=== PATIENT | female | born 1950 | race Caucasian/White ===

== ENCOUNTER → 2017-09-20 | Outpatient (CLI) | payer OTHER | LOC: FIMAGING 09:20 | PROVIDERS: ATTEND Family Medicine | DX: Z12.31 Encounter for screening mammogram for malignant neoplasm of breast (principal); Z80.3 Family history of malignant neoplasm of breast | CPT/HCPCS: G0202 ==

== ENCOUNTER → 2017-09-26 | Outpatient (CLI) | payer OTHER | LOC: FIMAGING 12:54 | PROVIDERS: ATTEND Family Medicine | DX: R92.8 Other abnormal and inconclusive findings on diagnostic imaging of breast (principal) ==

== ENCOUNTER → 2017-10-23 | Outpatient (CLI) | payer OTHER ==
[~2017-10-23] MED LIST: BUPIVACAINE 0.5% 10 ML SDV ONE; LIDOCAINE 1% 300 MG/30 ML SDV ONE; THROMBIN (BOVINE) 5,000 UNIT VIAL TP ONE
== END ==
LOC: FIMAGING 07:06
PROVIDERS: ATTEND Family Medicine
PROC: 0HBT3ZX Excision of Right Breast, Percutaneous Approach, Diagnostic (ICD-10-PCS; principal; 2017-10-23)
DX: C50.911 Malignant neoplasm of unspecified site of right female breast (principal)
CPT/HCPCS: 19083; 88305; 88341; 88342; 88360; G0206

== ENCOUNTER → 2017-11-07 | Outpatient (CLI) | payer OTHER | LOC: FIMAGING 11:05 | PROVIDERS: ATTEND Family Medicine | DX: Z13.820 Encounter for screening for osteoporosis (principal); M85.80 Other specified disorders of bone density and structure, unspecified site; Z78.0 Asymptomatic menopausal state; Z85.3 Personal history of malignant neoplasm of breast ==

== ENCOUNTER → 2017-11-21 | Outpatient (CLI) | payer OTHER, MEDICARE ==
[~2017-11-21] MED LIST changes: -BUPIVACAINE 0.5% 10 ML SDV ONE; +GADOBUTROL 10 ML VIAL IVP ONE; -LIDOCAINE 1% 300 MG/30 ML SDV ONE; -THROMBIN (BOVINE) 5,000 UNIT VIAL TP ONE
== END ==
LOC: FIMAGING 12:59
PROVIDERS: ATTEND Internal Medicine Hematology & Oncology
DX: D05.10 Intraductal carcinoma in situ of unspecified breast (principal); R92.8 Other abnormal and inconclusive findings on diagnostic imaging of breast
CPT/HCPCS: 0159T; A9585; C8908

== ENCOUNTER 2017-12-06 07:27 | Observation (INO) | payer OTHER, MEDICARE ==
[2017-12-06] MEDS ORDERED: LIDOCAINE 1% 300 MG/30 ML SDV ONE ×2 (07:46→13:36)
[2017-12-06] MEDS ORDERED: LR 1,000 ML IV ONE (10:42)
[2017-12-06] MEDS ORDERED: LIDOCAINE 1% 2 ML INJ ID PRN (10:42)
[2017-12-06] MEDS ORDERED: LIDOCAINE 1% 2 ML INJ ONE (10:44)
[2017-12-06] MEDS ORDERED: BUPIVACAINE 0.25% 30 ML SDV ONE (13:37)
[2017-12-06] MEDS ORDERED: MIDAZOLAM 2 MG/2 ML VIAL IVP ONE (13:48)
--- NOTE | 2017-12-06 13:49 | PDANEPAE ---
ANE History of Present Illness right breast partial mastectomy ANE Past Medical History - Cardiovascular History Hx Hypertension: No Hx Arrhythmias: No Hx Chest Pain: No Hx Coronary Artery / Peripheral Vascular Disease: No Hx CHF / Valvular Disease: No Hx Palpitations: No - Pulmonary History Hx COPD: No Hx Asthma/Reactive Airway Disease: No Hx Recent Upper Respiratory Infection: No Hx Oxygen in Use at Home: No Hx Sleep Apnea: No Sleep Apnea Screening Result - Last Documented: Negative - Neurologic History Hx Cerebrovascular Accident: No Hx Seizures: No Hx Dementia: No - Endocrine History Hx Diabetes: No Obesity: no - Renal History Hx Renal Disorders: No - Liver History Hx Hepatic Disorders: No - Neurological & Psychiatric Hx Hx Neurological and Psychiatric Disorders: Yes Neurological / Psychiatric History Comment: depression - Cancer History Hx Cancer: Yes Cancer History Comment: breast cancer currently - Congenital Disorder History Hx Congenital Disorders: No - GI History Hx Gastrointestinal Disorders: No - Other Health History Other Health History: wears glasses. 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 rash to buttocks - Chronic Pain History Chronic Pain: No - Surgical History Prior Surgeries: na ANE Review of Systems Review of Systems: - Exercise capacity METS (RN): 6 METS ANE Patient History - Allergies Allergies/Adverse Reactions: No Known Allergies Allergy (Verified 11/29/17 12:06) - Home Medications Home medications: home medication list seen and reviewed Home Medications: Escitalopram Oxalate 11/29/17 [Last Taken 12/05/17 20:00] Herbals/Supplements -Info Only 11/29/17 [Last Taken 1 Week Ago ~11/29/17] Raloxifene HCl 11/29/17 [Last Taken 12/05/17 20:00] ZOLPIDEM TARTRATE 12/05/17 [Last Taken 12/05/17 20:00] Acetaminophen 12/06/17 [Last Taken 12/04/17 1000 MG] - NPO status NPO Since - Liquids (Date): 12/06/17 NPO Since - Liquids (Time): 08:50 NPO Since - Solids (Date): 12/05/17 NPO Since - Solids (Time): 19:00 - Anes Hx Anes Hx: no prior problems - Smoking Hx Smoking Status: Former smoker - Family Anes Hx Family Hx Anesthesia Complications: none ANE Labs/Vital Signs - Vital Signs Blood Pressure: 116/59 Heart Rate: 59 Respiratory Rate: 16 O2 Sat (%): 95 Height: 166.37 cm Weight: 55.792 kg ANE Physical Exam - Airway Neck exam: FROM Mallampati Score: Class 1 Mouth exam: normal dental/mouth exam - Pulmonary Pulmonary: no respiratory distress - Cardiovascular Cardiovascular: regular rate and rhythym - ASA Status ASA Status: II ANE Anesthesia Plan Anesthesia Plan: GA w LMA
[2017-12-06] MEDS ORDERED: fentaNYL 100 MCG/2 ML INJ ONE ×2 (13:51→14:18)
[2017-12-06] MEDS ORDERED: PROPOFOL 200 MG/20 ML VIAL ONE (13:51)
--- NOTE | 2017-12-06 13:56 | PDHPUP ---
History & Physical Update H&P update statement: This history and physical update is based on an assessment of the patient which was completed after admission or registration (within 24 hours), but prior to the surgery/procedure. H&P update: H&P reviewed & patient examined, no change in patient's condition since H&P completed
[2017-12-06] MEDS ORDERED: ceFAZolin 2 GM/SWFI 2 GM/20 ML SYR IVP ONE (13:59)
[2017-12-06] MEDS ORDERED: LIDOCAINE 2% 100 MG/5 ML SYR ONE (14:19)
[2017-12-06] MEDS ORDERED: DEXAMETHASONE 4 MG/ML VIAL ONE (14:19)
[2017-12-06] MEDS ORDERED: ONDANSETRON 4 MG/2 ML VIAL ONE (14:19)
[2017-12-06] MEDS ORDERED: ceFAZolin 1 GM VIAL ONE (14:19)
[2017-12-06] MEDS ORDERED: KETOROLAC 30 MG/1 ML SDV ONE (14:19)
[2017-12-06] MEDS ORDERED: NALOXONE HCL 0.4 MG/ML INJ IVP PRN (14:39)
[2017-12-06] MEDS ORDERED: HYDROmorphONE/DILAUDID 1 MG/ML INJ IVP PRN ×2 (14:39→15:56)
[2017-12-06] MEDS ORDERED: fentaNYL 100 MCG/2 ML INJ IVP PRN (14:39)
[2017-12-06] MEDS ORDERED: ACETAMINOPHEN 500 MG TAB PO PRN (14:39)
[2017-12-06] MEDS ORDERED: ONDANSETRON 4 MG/2 ML VIAL IVP PRN ×2 (14:39→15:56)
[2017-12-06] MEDS ORDERED: OXYCODONE/APAP 5/325 TAB PO PRN (14:39)
[2017-12-06] MEDS ORDERED: ALBUTEROL 3 ML DEYVIAL IH PRN (14:39)
[2017-12-06] MEDS ORDERED: PROMETHAZINE HCL 25 MG/ML INJ IVP PRN ×2 (14:39→15:56)
[2017-12-06] MEDS ORDERED: METOCLOPRAMIDE 10 MG/2 ML VIAL IVP PRN (14:39)
[2017-12-06] MEDS ORDERED: AVITENE POWDER 1 GM JAR TP ONE (15:22)
[2017-12-06] MEDS ORDERED: LR 1,000 ML IV SCH (16:00)
--- NOTE | 2017-12-06 16:00 | POSTANESTH ---
Post Anesthetic Evaluation Cardiovascular Status: Normal, Stable Respiratory Status: Normal, Stable Level of Consciousness/Mental Status: Can Participate in Eval Pain Control: Adequate, Prn Tx Ordered Nausea/Vomiting Control: Adequate, Prn Tx Ordered Complications Possibly Related to Anesthesia: None Noted
--- NOTE | 2017-12-06 16:14 | POSTOPPROG ---
Post Op Note Date of Operation: 12/06/17 Surgeon: Elliot Carter (, FACS) Anesthesiologist: Mikel Valdes MD Anesthesia: GET(General Endotracheal) Pre-op Diagnosis: right breast cancer (T2N0) Post-op Diagnosis: same Procedure: right partial mastectomy, superficial ALND, Adjacent tissue transfer Inf/Abcess present in the surg proc area at time of surgery?: No Complications: none Specimen(s): 3 sentinel nodes 1 non-sentinel axillary tissue right partial mastectomy specimen, oriented with Margin Marker additional superior, medial and superior margins for permanent section
[2017-12-06] MEDS: OXYCODONE/APAP 5/325 TAB PO PRN (21:44)
[2017-12-06] MEDS: ceFAZolin 2 GM/SWFI 2 GM/20 ML SYR IVP SCH (21:45)
[2017-12-06] MEDS: SENNOSIDES/DOCUSATE SODIUM TAB PO SCH (21:45)
[2017-12-06] MEDS ORDERED: ceFAZolin 2 GM/DEXTROSE 100 ML IV SCH (22:00)
[2017-12-07 04:44] VITALS: BP 97/49; TEMP 97.8
[2017-12-07] MEDS: OXYCODONE/APAP 5/325 TAB PO PRN ×2 (04:59→11:22)
[2017-12-07] MEDS: ceFAZolin 2 GM/SWFI 2 GM/20 ML SYR IVP SCH (05:00)
--- NOTE | 2017-12-07 07:54 | GOP ---
[f rep st] OPERATIVE REPORT DATE OF OPERATION: 12/06/2017 SURGEON: Elliot Carter MD, FACS [employer] DIRECTOR: Pradip Olivier RN-FA ANESTHESIOLOGIST: Mikel Valdes MD PREOPERATIVE DIAGNOSIS: Right breast carcinoma. POSTOPERATIVE DIAGNOSIS: Right breast carcinoma. PROCEDURE PERFORMED: 1. Right partial mastectomy. 2. Right axillary sentinel lymph node mapping and superficial axillary lymph node dissection. 3. Adjacent tissue transfer for immediate reconstruction. FINDINGS: 3/3 sentinel nodes negative by frozen section. Specimen mammogram confirms clip in lumpectomy specimen additional medial, posterior, superior margins for permanent section ESTIMATED BLOOD LOSS: 25 mL. INDICATIONS: Patient is a 67-year-old female with a T2 N0 clinical stage right breast carcinoma admitted for partial mastectomy after discussing the options of management and alternative of mastectomy. DESCRIPTION OF PROCEDURE: After informed consent was obtained, the patient was brought to the operating room and placed under general anesthesia via laryngeal mask. The right breast was prepped and draped in the usual fashion. Patient had undergone preoperative sentinel lymph node injection as well as ultrasound- guided needle localization with preoperative mammogram showing the wire to be coursing through the area of known tumor and adjacent to the previously deployed Suros clip. The chest wall was prepped with chlorhexidine. The patient received 2 g of Ancef preoperatively. Before proceeding, a time-out identification of the patient was performed. A sterile field was established. The axilla was interrogated with the gamma probe, the point of maximum intensity was marked on skin with a marking pen. This was infiltrated with 0.25% Marcaine, incised transversely through the skin and subcutaneous tissues, and dissection carried out through the superficial axillary fascia. The sentinel nodes were deep in the lower level 1 chain and close to the serratus muscle. Lymphovascular structures were hemoclipped and divided, and the nodes were individually retrieved from the field and submitted for permanent section. The hottest node had 6000 counts per minute and the remaining 2 smaller sentinel nodes had greater than 1000 counts per minute. No other lymph node within the axilla met criteria (greater than 10% of the highest count) and additional lymph nodes were not removed. There was an area of non sentinel tissue dissected away from the 1st sentinel node was submitted as a separate specimen and labeled as non sentinel axillary tissue. This did not appear to contain a lymph node. While we were waiting for the results of the frozen section on the sentinel nodes, partial mastectomy was performed as follows. The patient had a wire entering the breast in the lower outer quadrant directed medially, cephalad and posteriorly. A curvilinear incision was marked on the skin with a marking pen slightly above the wire entry site and more medially oriented. Skin and subcutaneous tissues were infiltrated with 0.25% Marcaine. A curvilinear incision was made slightly above and medial to the wire entry site, and dissection carried through the skin and subcutaneous tissues. The wire was intercepted into the field and used to guide dissection, where the breast tissue around the shaft and tip of the wire were widely excised using a combination of sharp dissection and cautery. The specimen was removed from the field and immediately inked with a margin-marker kit, separately designating the superior, inferior, anterior, posterior, medial and lateral borders. The medial, superior and posterior margins appeared closest to the tumor by palpation, and these margins were re-excised to a depth of 5-8 mm and individually marked as the final medial, superior and posterior margins. These specimens were individually submitted for permanent section. In the interim, the lumpectomy specimen had gone to Imaging which confirmed the previously deployed clip to be within the specimen, and subsequently to Pathology. Immediate reconstruction was performed using adjacent tissue transfer, as follows: Flaps were elevated cephalad from the lumpectomy cavity between the skin and deep subcutaneous tissues of the breast cephalad to the areolar border , lateral and medial to the lumpectomy cavity. This allowed the adjacent breast tissues to be transposed over the defect to reduce the localized volume loss associated with the partial mastectomy. The operative field appeared hemostatic. The additional posterior medial and superior margins having been excised, Avitene was instilled within the cavity and the breast flaps were brought over the cavity to close them off. These were approximated loosely with 3-0 Monocryl suture. Subsequently, the contour and shape of the breast appeared satisfactory. The subcutaneous tissues were approximated with 3-0 Monocryl suture. The skin was closed with 4-0 Monocryl suture in a subcuticular fashion. We received notification from Pathology that the 3 sentinel nodes submitted were negative for evidence of malignancy on frozen section. The axillary incision was closed with 4-0 Monocryl suture and 4-0 Monocryl suture in a subcuticular fashion for the skin. Topical Mastisol and Steri-Strips were applied, followed by sterile dressings. Patient was extubated and brought to the recovery room in satisfactory condition. Needle, sponge, and instrument count were correct. COMPLICATIONS: None. /[id number]/MODL MTDD
[2017-12-07] MEDS: SENNOSIDES/DOCUSATE SODIUM TAB PO SCH (08:31)
[2017-12-07] MEDS ORDERED: ZOLPIDEM TARTRATE 5 MG TAB PO PRN (08:38)
[2017-12-07] MEDS ORDERED: ENOXAPARIN 40 MG/0.4 ML SYR SC SCH (09:00)
--- NOTE | 2017-12-07 09:02 | PDDCSUM ---
Discharge Summary Discharge Summary: #[id number] Sonja Carter MD, FACS
--- NOTE | 2017-12-07 09:39 | GDS ---
[f rep st] DISCHARGE SUMMARY DISCHARGE DIAGNOSES: 1. Right breast carcinoma. 2. History of depression. 3. History of insomnia. PROCEDURE PERFORMED: Right partial mastectomy with sentinel lymph node biopsy and immediate reconstr uction with adjacent tissue transfer. HOSPITAL COURSE: For details of admission history and physical, please see dictated summary. Briefl y, the patient is a 67-year-old female with a T2 N0 clinical stage right breast infiltrating ductal c arcinoma admitted for partial mastectomy and sentinel lymph node mapping and biopsy. She underwent r emoval of 3 sentinel lymph nodes, which were negative by frozen section. Permanent section pending. Partial mastectomy specimen was submitted for permanent section with additional medial posterior and superior margins. Following surgery, patient had mild nausea and moderate pain. This resolved and was treated successfully with oral Percocet. The patient was discharged on the morning after surgery to follow up in my office in the upcoming week. I will contact her when pathology results are avail able. DISCHARGE MEDICATIONS: The patient will resume escitalopram 10 mg at q.h.s., Ambien 5 mg p.o. q.h.s. , herbal supplements, and was given a prescription for oxycodone/acetaminophen 5/325 mg 1 p.o. q.4 ho urs p.r.n. pain #20, and Senokot S 1 p.o. twice daily. CONDITION AT TIME OF DISCHARGE: Satisfactory. FOLLOWUP: Arranged on 12/12/2017 at my office. /[id number]/MODL
--- NOTE | 2017-12-07 10:22 | ASDISCHSUM ---
Discharge Information Plan Status: Medically Cleared to Leave: Discharge Date: CM D/C Disposition: ADT D/C Disposition: Projected Discharge Date: Transportation at D/C: Discharge Delay Reason: Follow-Up Date: Discharge Slot: Final Diagnosis: Placement Information Patient Contact Information Contact Name:PERICO Relationship: Address: Work Phone: City: [facility] Phone: State/Zip Code: Email: Financial Information Financial Class: Primary Plan Desc:MEDICARE OUTPATIENT Primary Plan Number:[id number] Secondary Plan Desc:[employer]/M[employer] SUPPLEMENT Secondary Plan Number:[id number] Assessment Information BC CM Progress Note CM Note CM Note Notes: Pt will DC today with no needs. Date Signed: 12/07/2017 10:21 AM Electronically Signed By:Ban Taylor LCSW Intervention Information
[2017-12-07 11:43] VITALS: PULSE 54; RESP 18; O2SAT 96
[2017-12-07] MEDS ORDERED: ESCITALOPRAM OXALATE 10 MG TAB PO SCH (21:00)
== END 2017-12-07 11:49 | disposition home or self-care (01) ==
LOC: FIMAGING 07:27 → F1N 16:00
PROVIDERS: ADMIT Surgery; ATTEND Surgery
PROC: 07B50ZX Excision of Right Axillary Lymphatic, Open Approach, Diagnostic (ICD-10-PCS; principal; 2017-12-06 14:00)
PROC: 0HBT0ZZ Excision of Right Breast, Open Approach (ICD-10-PCS; principal; 2017-12-06 14:00)
PROC: 0JX60ZB Transfer Chest Subcutaneous Tissue and Fascia with Skin and Subcutaneous Tissue, Open Approach (ICD-10-PCS; principal; 2017-12-06 14:00)
PROC: 3E0W3KZ Introduction of Other Diagnostic Substance into Lymphatics, Percutaneous Approach (ICD-10-PCS; 2017-12-06 14:00)
DX: D05.11 Intraductal carcinoma in situ of right breast (principal); F32.9 Major depressive disorder, single episode, unspecified; G47.00 Insomnia, unspecified
CPT/HCPCS: 19301; 19366; 38500; 76098; 78195; 88360; 88361; A9520; G0378; J0690; J1100; J1650; J1885; J2001; J2250; J2405; J2704; J3010

== ENCOUNTER → 2018-04-02 | Outpatient (CLI) | payer OTHER, MEDICARE | LOC: BMCIMAGING 10:02 | PROVIDERS: ATTEND Emergency Medicine | DX: M79.672 Pain in left foot (principal) ==

== ENCOUNTER → 2018-11-13 | Outpatient (CLI) | payer OTHER, MEDICARE | LOC: FIMAGING 13:14 | PROVIDERS: ATTEND Internal Medicine Hematology & Oncology | DX: Z12.31 Encounter for screening mammogram for malignant neoplasm of breast (principal); Z85.3 Personal history of malignant neoplasm of breast; Z80.3 Family history of malignant neoplasm of breast; Z13.820 Encounter for screening for osteoporosis; M85.89 Other specified disorders of bone density and structure, multiple sites; Z78.0 Asymptomatic menopausal state; Z79.899 Other long term (current) drug therapy ==

== ENCOUNTER → 2019-02-13 | Outpatient (CLI) | payer OTHER, MEDICARE | LOC: BMCIMAGING 15:23 | PROVIDERS: ATTEND Internal Medicine Rheumatology | DX: M71.21 Synovial cyst of popliteal space [Baker], right knee (principal); M17.11 Unilateral primary osteoarthritis, right knee ==